=== PATIENT | female | born 1955 | race African-American/Black ===

== ENCOUNTER 2017-02-10 10:08 | Emergency (ER) | payer OTHER ==
[2017-02-10 10:15] VITALS: BP 136/75; PULSE 98; TEMP 98.6; BMI 29.2
--- NOTE | 2017-02-10 11:11 | PDOC ---
History of Present Illness - General Chief Complaint: Eye Problem Stated Complaint: LT EYE INJURY Time Seen by Provider: 02/10/17 10:29 History Source: Patient Exam Limitations: No Limitations - History of Present Illness Initial Comments: 02/10/17 13:31 Chief complaint: left upper eyelid swelling with discharge History Of present illness: Patient is a 61-year-old female history of non- insulin-dependent diabetic, HTN and hyperlipidemia here today complaining of left eyelid swelling with discharge from eye that is yellowish in color for the last couple of days. Patient denies any change in her vision. Patient denies any fever. 02/10/17 13:32 Timing/Duration: getting worse Severity: moderate (LEFT EYELID EDEMA WITH DISCHARGE FEW DAYS) Past History - Past Medical History Allergies/Adverse Reactions: Allergies Allergy/AdvReac Type Severity Reaction Status Date / Time No Known Allergies Allergy Verified 02/10/17 10:15 Home Medications: Ambulatory Orders Benzocaine/Menth/Cetylpyrd Cl [Cepacol Sore Throat Lozenge] 1 each MM ASDIR #10 lozenge 07/08/15 Fluticasone Prop 0.05% Nasal [Flonase -] 1 - 2 spray NS BID #1 spray.pump Linagliptin/Metformin HCl [Jentadueto 2.5 mg-1000 mg Tab] 1 each PO DAILY Loratadine [Claritin -] 10 mg PO DAILY #7 tablet 07/08/15 Losartan Potassium 25 mg PO DAILY 07/08/15 Erythromycin 0.5% Eye Ointment [Erythromycin 0.5% Eye Ointment -] 1 applic OS QID #1 tube 02/10/17 Diabetes: Yes HTN: Yes Hypercholesterolemia: Yes - Suicide/Smoking/Psychosocial Hx Smoking History: Current every day smoker Have you smoked in the past 12 months: Yes Number of Cigarettes Smoked Daily: 8 Information on smoking cessation initiated: Yes 'Breaking Loose' booklet given: 02/10/17 Hx Alcohol Use: No Drug/Substance Use Hx: No Review of Systems - Review of Systems Able to Perform ROS?: Yes Constitutional: No: Symptoms Reported HEENTM: Yes: Other (LEFT EYELID EDEMA WITH SLIGHT GRAYISH DISCHARGE). No: Eye Pain, Blurred Vision, Tearing Respiratory: No: Symptoms reported Cardiac (ROS): No: Symptoms Reported ABD/GI: No: Symptoms Reported : No: Symptoms Reported Musculoskeletal: No: Symptoms Reported Integumentary: Yes: Other (LEFT EYELID EDEMA) *Physical Exam - Vital Signs Last Vital Signs Temp Pulse Resp BP Pulse Ox 98.6 F 98 H 20 136/75 99 02/10/17 10:12 02/10/17 10:12 02/10/17 10:12 02/10/17 10:12 02/10/17 10:12 - Physical Exam General Appearance: Yes: Appropriately Dressed HEENT: positive: EOMI, JED, TMs Normal, Other (LEFT MID EYELID EDEMA TENDER ) . negative: Photophobia, Pharyngeal Erythema, Tonsillar Exudate, Tonsillar Erythema Neck: negative: Lymphadenopathy (R), Lymphadenopathy (L) Respiratory/Chest: positive: Lungs Clear, Normal Breath Sounds. negative: Chest Tender, Respiratory Distress Cardiovascular: positive: Regular Rhythm, Regular Rate, S1, S2 Integumentary: positive: Other (LEFT MID EYELID EDEMA) Neurologic: positive: Alert, Normal Response Medical Decision Making - Medical Decision Making 02/10/17 13:37 Patient is a 61-year-old female history of gww-mrryaqd-glamauoyw diabetic, HTN and hyperlipidemia here today complaining of left eyelid swelling with discharge from eye that is yellowish in color for the last couple of days. Patient denies any change in her vision. Patient denies any fever. Left external sty PLAN: erythromycin 0.5% opth oint 1/2 inch left eye qid for 7 days optho referral *DC/Admit/Observation/Transfer Diagnosis at time of Disposition: Hordeolum externum (stye) Qualifiers: Laterality: left Eyelid: upper Qualified Code(s): H00.014 - Hordeolum externum left upper eyelid - Discharge Dispostion Disposition: HOME Condition at time of disposition: Stable - Prescriptions Prescriptions: Erythromycin 0.5% Eye Ointment [Erythromycin 0.5% Eye Ointment -] 1 applic OS QID #1 tube - Referrals Referrals: Antonio Davenport MD [Primary Care Provider] - Alexandre High MD [Staff Physician] - - Patient Instructions Additional Instructions: APPLY warm soaks to left upper eyelid every 2-3 hours for 5-10 minutes while awake Follow up with wooden frame builder on 02/12/2017 for further evaluation Return to emergency room if symptoms worsen Patient voiced understanding of discharge instructions and all questions were answered
== END 2017-02-10 11:18 | disposition home or self-care (01) ==
LOC: JERFT 10:08
DX: H00.014 Hordeolum externum left upper eyelid (principal)
CPT/HCPCS: 99281-25

== ENCOUNTER 2020-07-31 11:21 | Emergency (ER) | payer OTHER ==
[2020-07-31 12:08] VITALS: BP 122/75; PULSE 88; TEMP 98.4; BMI 28.3
[2020-07-31] MEDS ORDERED: NAPROXEN 500 MG TABLET PO ONE (12:33)
[2020-07-31] MEDS ORDERED: NAPROXEN 500 MG TABLET ONE (12:37)
== END 2020-07-31 13:00 | disposition home or self-care (01) ==
LOC: JER 11:21 → JERFT 11:21
DX: M70.72 Other bursitis of hip, left hip (principal)
CPT/HCPCS: 73502-TC-LT-FY; 99283-25

== ENCOUNTER 2020-09-24 09:15 | Emergency (ER) | payer OTHER ==
[2020-09-24 09:24] VITALS: BP 124/78; PULSE 110; TEMP 99.2; BMI 28.3
== END 2020-09-24 10:10 | disposition home or self-care (01) ==
LOC: JER 09:15 → JERFT 09:15
DX: L03.213 Periorbital cellulitis (principal)
CPT/HCPCS: 99281-25

== ENCOUNTER 2021-06-11 14:26 | Emergency (ER) | payer OTHER ==
[2021-06-11 14:39] VITALS: BP 121/75; PULSE 96; TEMP 97.8; BMI 28.3
[2021-06-11] MEDS ORDERED: KETOROLAC TROMETHAMINE 30 MG/1 ML VIAL IM ONE (15:05)
[2021-06-11] MEDS ORDERED: KETOROLAC TROMETHAMINE 30 MG/1 ML VIAL ONE (15:29)
== END 2021-06-11 15:10 | disposition home or self-care (01) ==
LOC: JERFT 14:26 → JER 14:26 → JERFT 15:10
PROC: 3E0233Z Introduction of Anti-inflammatory into Muscle, Percutaneous Approach (ICD-10-PCS; principal; 2021-06-11)
DX: K08.89 Other specified disorders of teeth and supporting structures (principal)
CPT/HCPCS: 96372; 99283-25

== ENCOUNTER → 2021-12-08 | Day surgery (SDC) | payer OTHER | END | disposition home or self-care (01) | LOC: FMAMMOTONE 09:54 | PROVIDERS: ATTEND Family Medicine Geriatric Medicine | PROC: 0H9T3ZX Drainage of Right Breast, Percutaneous Approach, Diagnostic (ICD-10-PCS; principal; 2021-12-08) | DX: N60.11 Diffuse cystic mastopathy of right breast (principal); N60.31 Fibrosclerosis of right breast; N64.89 Other specified disorders of breast; R92.1 Mammographic calcification found on diagnostic imaging of breast | CPT/HCPCS: 19081; 76098-TC-FY; 88305-TC; A4648 ==